=== PATIENT | male | born 1980 | race Caucasian/White ===

== ENCOUNTER 2017-06-26 14:41 | Emergency (ER) | payer BC ==
[~2017-06-26] VITALS: Ht 180.3 cm; Wt 110.0 kg
[2017-06-26 14:51] VITALS: Ht 180.3 cm; Wt 110.0 kg
[2017-06-26] MEDS ORDERED: OXYC-203 PO (16:59)
[2017-06-26] MEDS ORDERED: OXYCODONE/ACETAMINOPHEN (10/325) TAB PO ONE (17:00)
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
== END 2017-06-26 17:34 | disposition home or self-care (01) ==
LOC: FTE 14:41
DX: M79.604 Pain in right leg (principal); F17.210 Nicotine dependence, cigarettes, uncomplicated
CPT/HCPCS: Z7502; Z7610; 99283

== ENCOUNTER 2017-06-30 10:54 | Emergency (ER) | payer BC ==
[~2017-06-30] VITALS: Wt 100.0 kg
[~2017-06-30 10:54] MED LIST: OXYC-203 PO
[2017-06-30] MEDS ORDERED: KETOROLAC 60 MG INJ IM STA (12:02)
[2017-06-30] MEDS ORDERED: IBUP800T25 PO (12:06)
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
[2017-06-30] MEDS ORDERED: OXYCODONE/ACETAMINOPHEN (5/325) TAB PO ONE (12:30)
== END 2017-06-30 12:22 | disposition home or self-care (01) ==
LOC: FTE 10:54
DX: Z76.0 Encounter for issue of repeat prescription (principal); F17.210 Nicotine dependence, cigarettes, uncomplicated; Z72.89 Other problems related to lifestyle
CPT/HCPCS: 96372; J1885; Z7502; Z7610

== ENCOUNTER 2017-08-31 13:31 | Emergency (ER) | payer BC ==
[~2017-08-31] VITALS: Ht 180.3 cm; Wt 121.7 kg
[~2017-08-31 13:31] MED LIST changes: +IBUP800T25 PO
[2017-08-31 13:35] VITALS: Ht 180.3 cm; Wt 121.7 kg
[2017-08-31] MEDS ORDERED: OXYCODONE/ACETAMINOPHEN (5/325) TAB PO ONE (15:30)
--- NOTE | 2017-08-31 16:36 | RADRPT ---
PROCEDURE: XR Right Ankle. CLINICAL INDICATION: Right ankle pain. TECHNIQUE: 3 views. Frontal, lateral, and oblique. COMPARISON: None. FINDINGS: There has been open reduction and internal fixation of the tibia with a jose in the shaft of the tibi a and a locking screw distally. There is no fracture or dislocation of the ankle. Articular surfaces are intact. There is no lytic or blastic lesion. The soft tissues are normal. IMPRESSION: 1. Prior open reduction and internal fixation of the tibia. 2. Otherwise unremarkable images of the right ankle. RPTAT: QQ .Robb Mei MD, Date Time Electronically viewed and signed by .Robb Mei MD, on 08/31/2017 16:35 .R/
--- NOTE | 2017-08-31 16:37 | RADRPT ---
PROCEDURE: XR Right Tibia and Fibula. CLINICAL INDICATION: Right lower leg pain. TECHNIQUE: Two views. Frontal and lateral. COMPARISON: No prior studies are available for comparison. FINDINGS: There has been previous open reduction and internal fixation with a jose in the shaft of the tibia, a locking screw proximally in the tibia and a locking screw distally in the tibia. There is a healing fracture of the midshaft of the tibia with anatomic alignment. There is also a healing fracture of the midshaft of the fibula with anatomic alignment. There is no other fracture and there is no dislo cation. The soft tissues are normal. Articular surfaces are intact. There is no lytic or blastic lesion. IMPRESSION: 1. Satisfactory postoperative appearance of the right tibia and fibula. RPTAT: QQ .Robb Mei MD, Date Time Electronically viewed and signed by .Robb Mei MD, on 08/31/2017 16:36 .R/
[2017-08-31] MEDS ORDERED: HYDR-906 PO (16:42)
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
== END 2017-08-31 17:00 | disposition home or self-care (01) ==
LOC: FTE 13:31
DX: S89.91XA Unspecified injury of right lower leg, initial encounter (principal); F17.210 Nicotine dependence, cigarettes, uncomplicated; W10.9XXA Fall (on) (from) unspecified stairs and steps, initial encounter; Y92.9 Unspecified place or not applicable
CPT/HCPCS: 73590; 73610; Z7502; Z7610

== ENCOUNTER 2017-12-21 23:38 | Emergency (ER) | END 2017-12-22 00:51 | disposition home or self-care (01) ==